=== PATIENT | male | born 1960 | race Caucasian/White ===

== ENCOUNTER 2018-01-26 19:16 | Emergency (ER) | payer OTHER ==
[~2018-01-26] VITALS: Ht 180.3 cm; Wt 106.6 kg
[2018-01-27] MEDS ORDERED: HYDROcodone-ACET 10/325MG TAB PO ONE (00:45)
[2018-01-27 01:51] VITALS: BP 120/70
== END 2018-01-27 02:01 | disposition home or self-care (01) ==
LOC: ER 19:16
DX: S60.455A Superficial foreign body of left ring finger, initial encounter (principal); W49.04XA Ring or other jewelry causing external constriction, initial encounter; Z91.040 Latex allergy status; Z88.6 Allergy status to analgesic agent; Y92.89 Other specified places as the place of occurrence of the external cause